=== PATIENT | female | born 1975 | race Two or more races ===

== ENCOUNTER 2019-05-07 01:27 | Emergency (ER) | payer MEDICAID ==
[~2019-05-07] VITALS: Ht 157.5 cm; Wt 68.0 kg
--- NOTE | 2019-05-07 01:40 | NUR ---
ED Nurse Note: Pt walked in c/o head ache, chest pain since one week. Pt stated she is unable to carry out ADL's d/t s/s. Pt stated she never had anxiety but feels anxious. [id number]
[2019-05-07 02:00] VITALS: BP 124/81
--- NOTE | 2019-05-07 02:00 | NUR ---
ED Nurse Note: IV ACCESS ESTABLISHED. BLOOD AND URINE COLLECTED; SENT DOWN TO LAB.
[2019-05-07 02:25] LABS: APPEARANCE,URINE CLEAR; BASOPHILS % (AUTO) 1.4 % (0.0-2.0); BILIRUBIN, URINE NEGATIVE (NEGATIVE); COLOR,URINE PALE YELLOW; EOSINOPHILS % (AUTO) 0.8 % (0.0-3.0); GLUCOSE, URINE (UA) NEGATIVE (NEGATIVE); HEMATOCRIT 35.7 % (37.0-47.0); HEMOGLOBIN 11.8 G/DL (12.0-16.0); KETONES,URINE NEGATIVE (NEGATIVE); LEUKOCYTE ESTERASE ,URINE NEGATIVE (NEGATIVE); LYMPHOCYTES % (AUTO) 27.4 % (20.0-45.0); MEAN CORPUSCULAR VOLUME 83 FL (80-99); MONOCYTES % (AUTO) 7.7 % (1.0-10.0); NEUTROPHILS % (AUTO) 62.7 % (45.0-75.0); NITRITE,URINE NEGATIVE (NEGATIVE); PH,URINE 6.5 (4.5-8.0); PLATELET COUNT 260 K/UL (150-450); PROTEIN,URINE NEGATIVE (NEGATIVE); RED BLOOD COUNT 4.27 M/UL (4.20-5.40); RED CELL DISTRIBUTION WIDTH 14.8 % (11.6-14.8); UROBILINOGEN,URINE NORMAL MG/DL (0.0-1.0); WHITE BLOOD COUNT 6.1 K/UL (4.8-10.8)
[2019-05-07 02:36] LABS: ANION GAP 11 mmol/L (5-15); BLOOD UREA NITROGEN 9 mg/dL (7-18); CALCIUM 8.6 MG/DL (8.5-10.1); CARBON DIOXIDE 25 MMOL/L (21-32); CHLORIDE 108 MMOL/L (98-107); CREATININE 0.8 MG/DL (0.55-1.30); POTASSIUM 3.6 MMOL/L (3.5-5.1); SODIUM 144 MMOL/L (136-145)
[2019-05-07 02:51] LABS: ALANINE AMINOTRANSFERASE 25 U/L (12-78); ALBUMIN 4.2 G/DL (3.4-5.0); ALBUMIN/GLOBULIN RATIO 1.1 (1.0-2.7); ALKALINE PHOSPHATASE 71 U/L (46-116); ASPARTATE AMINO TRANSFERASE 15 U/L (15-37); BILIRUBIN,TOTAL 0.2 MG/DL (0.2-1.0)
[2019-05-07 03:00] VITALS: BP 132/79
[2019-05-07] MEDS ORDERED: Metoclopramide 10mg/2ml Inj IVP ONE (04:00)
[2019-05-07 04:30] VITALS: BP 122/79
--- NOTE | 2019-05-07 04:48 | Emergency Room Report ---
History of Present Illness General Chief Complaint: General Complaint Source: Patient Present Illness HPI 43-year-old female presents with vague complaints of ongoing palpitations that come and go, this is been ongoing for about a year, when she goes to work she feels anxiety and palpitations, she states she has a headache that then travels down her body and then she feels her heart race, back pain, chest tightness that comes and goes, work appears to be an aggravating factor however she states that she enjoys her work, no alleviating factors severity is moderate, intermittent, she denies any current chest pain currently no nausea no vomiting no abdominal pain, patient has seen her primary care doctor who stated that she most likely suffers from some form of anxiety however they have not started any treatment, patient presents for these ongoing symptoms and for treatment Allergies: Coded Allergies: No Known Allergies (Unverified , 05/07/19) Patient History Past Medical History: see triage record Last Menstrual Period: na Reviewed Nursing Documentation: PMH: Agreed; PSxH: Agreed Nursing Documentation-PMH Past Medical History: No Stated History Review of Systems All Other Systems: negative except mentioned in HPI Physical Exam Vital Signs Date Time Temp Pulse Resp B/P (MAP) Pulse Ox O2 Delivery O2 Flow Rate FiO2 05/07/19 01:36 98.1 82 16 124/81 (95) 100 Room Air Sp02 EP Interpretation: reviewed, normal General Appearance: well appearing, no apparent distress, alert Head: normocephalic, atraumatic Eyes: bilateral eye PERRL, bilateral eye EOMI ENT: uvula midline, moist mucus membranes Neck: supple, thyroid normal, supple/symm/no masses Respiratory: lungs clear, no respiratory distress, no retraction, no accessory muscle use Cardiovascular #1: normal peripheral pulses, regular rate, rhythm, no edema, no gallop, no murmur Gastrointestinal: non tender, soft, no guarding, no rebound Musculoskeletal: normal inspection Neurologic: alert, oriented x3 Psychiatric: anxious Skin: no rash, warm/dry Medical Decision Making Diagnostic Impression: Primary Impression: TSH elevation Additional Impression: Palpitations ER Course 43-year-old female presents with constellation of symptoms that are atypical differential diagnosis includes elevated thyroid hormone, ACS, palpitations Chest x-ray negative, EKG negative troponin negative, patient found to have a incidental elevated TSH with normal T4 T3 Patient may be having an uptake in thyroid hormone which is inducing her palpitations however her T4 and T3 are normal, counseled patient to follow-up with endocrinology A copy of her labs were handed to her Will disposition patient home with return precautions follow-up with PCP Laboratory Tests Test 05/07/19 02:00 White Blood Count 6.1 K/UL (4.8-10.8) Red Blood Count 4.27 M/UL (4.20-5.40) Hemoglobin 11.8 G/DL (12.0-16.0) L Hematocrit 35.7 % (37.0-47.0) L Mean Corpuscular Volume 83 FL (80-99) Mean Corpuscular Hemoglobin 27.5 PG (27.0-31.0) Mean Corpuscular Hemoglobin Concent 33.0 G/DL (32.0-36.0) Red Cell Distribution Width 14.8 % (11.6-14.8) Platelet Count 260 K/UL (150-450) Mean Platelet Volume 7.5 FL (6.5-10.1) Neutrophils (%) (Auto) 62.7 % (45.0-75.0) Lymphocytes (%) (Auto) 27.4 % (20.0-45.0) Monocytes (%) (Auto) 7.7 % (1.0-10.0) Eosinophils (%) (Auto) 0.8 % (0.0-3.0) Basophils (%) (Auto) 1.4 % (0.0-2.0) Urine Color Pale yellow Urine Appearance Clear Urine pH 6.5 (4.5-8.0) Urine Specific [place] 1.010 (1.005-1.035) Urine Protein Negative (NEGATIVE) Urine Glucose (UA) Negative (NEGATIVE) Urine Ketones Negative (NEGATIVE) Urine Blood 2+ (NEGATIVE) H Urine Nitrite Negative (NEGATIVE) Urine Bilirubin Negative (NEGATIVE) Urine Urobilinogen Normal MG/DL (0.0-1.0) Urine Leukocyte Esterase Negative (NEGATIVE) Urine RBC 0-2 /HPF (0 - 2) Urine WBC 0-2 /HPF (0 - 2) Urine Squamous Epithelial Cells Occasional /LPF Urine Bacteria Occasional /HPF (NONE) Urine HCG, Qualitative Negative (NEGATIVE) Sodium Level 144 MMOL/L (136-145) Potassium Level 3.6 MMOL/L (3.5-5.1) Chloride Level 108 MMOL/L (98-107) H Carbon Dioxide Level 25 MMOL/L (21-32) Anion Gap 11 mmol/L (5-15) Blood Urea Nitrogen 9 mg/dL (7-18) Creatinine 0.8 MG/DL (0.55-1.30) Estimate Glomerular Filtration Rate > 60 mL/min (>60) Glucose Level 106 MG/DL (74-106) Calcium Level 8.6 MG/DL (8.5-10.1) Total Bilirubin 0.2 MG/DL (0.2-1.0) Aspartate Amino Transferase (AST) 15 U/L (15-37) Alanine Aminotransferase (ALT) 25 U/L (12-78) Alkaline Phosphatase 71 U/L (46-116) Troponin I 0.000 ng/mL (0.000-0.056) Total Protein 7.9 G/DL (6.4-8.2) Albumin 4.2 G/DL (3.4-5.0) Globulin 3.7 g/dL Albumin/Globulin Ratio 1.1 (1.0-2.7) Lipase 148 U/L (73-393) Thyroid Stimulating Hormone (TSH) 8.361 uiU/mL (0.358-3.740) Free Thyroxine 1.27 NG/DL (0.76-1.46) Free Triiodothyronine 3.6 pg/mL (2.3-4.2) Urine Opiates Screen Negative (NEGATIVE) Urine Barbiturates Screen Negative (NEGATIVE) Phencyclidine (PCP) Screen Negative (NEGATIVE) Urine Amphetamines Screen Negative (NEGATIVE) Urine Benzodiazepines Screen Negative (NEGATIVE) Urine Cocaine Screen Negative (NEGATIVE) Urine Marijuana (THC) Screen Negative (NEGATIVE) EKG Diagnostic Results EKG Time: 02:09 EP Interpretation: NSR, rate 71, QTc 447, no acute ST elevations, normal axis Rhythm Strip Diag. Results Rhythm Strip Time: 02:15 EP Interpretation: yes Rate: 72 Rhythm: NSR, no PVC's, no ectopy Chest X-Ray Diagnostic Results Chest X-Ray Diagnostic Results : Chest X-Ray Ordered: Yes # of Views/Limited/Complete: 1 View Indication: Chest Pain EP Interpretation: Yes Interpretation: no consolidation, no effusion, no pneumothorax, no acute cardiopulmonary disease Impression: No acute disease Electronically Signed by: Guevara Schofield MD Last Vital Signs Date Time Temp Pulse Resp B/P (MAP) Pulse Ox O2 Delivery O2 Flow Rate FiO2 05/07/19 02:00 82 16 Room Air 05/07/19 02:00 98.1 124/81 100 Disposition: HOME, SELF-CARE Condition: Stable Referrals: [facility] Astrid Castroaleta [facility] Patient Instructions: Palpitations, [id number], Thyroid-Stimulating Hormone Test Additional Instructions: The patient was provided with discharge instructions, notified to follow-up with a primary care doctor and or specialist in the next 24-48 hours, and to return to the ED if they have worsening of their symptoms. Please note that this report is being documented using [employer] technology. This can lead to erroneous entry secondary to incorrect interpretation by the dictating instrument. FOLLOW-UP WITH CARDIOLOGY, ENDOCRINOLOGY, AND PCP Guevara Schofield MD May 07, 2019 04:48
[2019-05-07 05:00] VITALS: BP 132/79
--- NOTE | 2019-05-07 05:00 | NUR ---
ER DISCHARGE NOTE: Patient is cleared to be discharged per ERMD, pt is aox4, on room air, with stable vital signs. accompanied by family member. pt was given dc and prescription instructions, pt was able to verbalize understanding, pt id band and iv site removed without complications. pt is able to ambulate with steady gait. pt took all belongings.
--- NOTE | 2019-05-07 05:01 | Diagnostic Imaging Report ---
EXAM: XR Chest, 1 View CLINICAL HISTORY: CP TECHNIQUE: Frontal view of the chest. COMPARISON: No relevant prior studies available. FINDINGS: Lungs: Unremarkable. No consolidation. Pleural space: Unremarkable. No pneumothorax. Heart: Unremarkable. No cardiomegaly. Mediastinum: Unremarkable. Bones/joints: Unremarkable. IMPRESSION: Normal chest x-ray.
[2019-05-07] MEDS ORDERED: RIBOFLAVIN100 MG PO (05:03)
[2019-05-08] MEDS ORDERED: FIORICET1 EA ORAL (20:36)
== END 2019-05-07 05:00 | disposition home or self-care (01) ==
LOC: EMR 02:00
DX: R94.6 Abnormal results of thyroid function studies (principal); R00.2 Palpitations
CPT/HCPCS: 36415; 71045; 80053; 80307; 81003; 81025; 83690; 84439; 84443; 84481; 84484; 85025; 93005; 96361; 96374; J2765; J7030; Z7502; 99284

== ENCOUNTER 2019-05-08 14:36 | Emergency (ER) | payer MEDICAID ==
[~2019-05-08] VITALS: Ht 157.5 cm; Wt 68.0 kg
[~2019-05-08 14:36] MED LIST: RIBOFLAVIN100 MG PO
--- NOTE | 2019-05-08 16:13 | Diagnostic Imaging Report ---
Indication: Headache Technique: Contiguous 5 mm thick transaxial imaging of the head obtained in a Siemens Sensation [address] scanner. Soft tissue and bone windows generated. Automatic Exposure Control was utilized. Total Dose length Product (DLP): [address] Dose Index Volume (CTDIvol): 62.7 mGy Comparison: none Findings: The size and configuration of the cortical sulci, basal cisterns, and ventricles are within normal limits for age. There is no mass effect, midline shift, or edema identified. There is no evidence of acute hemorrhage or abnormal intra-axial or extra-axial fluid collections. The bones and soft tissues are unremarkable. Impression: No mass effect, edema or acute bleed. The CT scanner at [facility] is accredited by the [employer] and the scans are performed using dose optimization techniques as appropriate to a performed exam including Automatic Exposure control.
--- NOTE | 2019-05-08 17:01 | NUR ---
ED Nurse Note: pt to rm with c/o migraine headache. pt with urine sent to lab and ct scan pending those results. pt denies n/v but relates the headache x 5 days and is light sensitive. lights dimmed in room
--- NOTE | 2019-05-08 17:10 | Emergency Room Report ---
History of Present Illness General Chief Complaint: Headache Source: Patient Present Illness HPI 43-year-old female presents to the emergency department complaining of 9 out of 10 severity persistent headache since yesterday. Patient reports that she was seen in the emergency department yesterday for similar symptoms and states that she continues to have a headache. Patient states that she had elevated TSH levels yesterday. Patient reports she has been having intermittent headaches times several months. Patient states that her headaches are circumferential around her head similar to wearing a tight hat. She describes throbbing in nature and describes a pressure sensation. Patient reports some increased sensitivity to lights and states that she also notices when she gets "worked up or in an argument her headache is triggered. Patient denies history of migraines. She reports her mother has a history of migraines though. Patient states she took Tylenol with no relief. She reports having been told she had high blood pressure in the past but was never placed on medication and states that she has been having normal blood pressures lately. She denies neck pain or stiffness, nausea, vomiting, tinnitus, visual changes or loss of vision. Patient reports being in a dark quiet room will help to minimize her symptoms. Patient denies urinary frequency, urgency, hematuria or dysuria. She denies suspicion of . She denies recent head trauma or fall. She denies eye pain. She denies paresthesias, muscle weakness, inability to move the extremities, facial paralysis or slurred speech. She denies sudden onset of her headache and states that her symptoms have been progressively getting worse and more frequent. She denies CP, SOB, Dizziness or syncope. Allergies: Coded Allergies: No Known Allergies (Unverified , 05/07/19) Patient History Past Medical History: see triage record Past Surgical History: none Pertinent Family History: other - migraine- mother Last Menstrual Period: 05/04/2019 Now: No Reviewed Nursing Documentation: PMH: Agreed; PSxH: Agreed Nursing Documentation-PMH Past Medical History: No Stated History Review of Systems All Other Systems: negative except mentioned in HPI Physical Exam Vital Signs Date Time Temp Pulse Resp B/P (MAP) Pulse Ox O2 Delivery O2 Flow Rate FiO2 05/08/19 14:44 98.6 90 16 114/71 (85) 100 Room Air Sp02 EP Interpretation: reviewed, normal General Appearance: well appearing, no apparent distress, alert, GCS 15, non- toxic Head: normocephalic, atraumatic Eyes: bilateral eye normal inspection, bilateral eye PERRL, bilateral eye EOMI , bilateral eye other - no photophobia on exam with otoscope ENT: hearing grossly normal, normal voice Neck: full range of motion, no meningismus, no bony tend Respiratory: lungs clear, normal breath sounds, speaking full sentences Cardiovascular #1: regular rate, rhythm Genitourinary: normal inspection, no CVA tenderness Musculoskeletal: back normal, normal range of motion, gait/station normal, non- tender Neurologic: alert, motor strength/tone normal, nursing center tutor III-XII nml as tested, oriented, oriented x3, sensory intact, responsive, speech normal, grossly normal , no focal defects, other - No pronator drift, no facial droop, negative Romberg , negative ataxia, normal visual field testing - no decreased VF to confrontation. Patient has a normal speech she answers questions appropriately and provide sufficient amount of detail. No obvious increase in response time or difficulty with word recall. Equal hatchery attendant strength bilaterally. Psychiatric: judgement/insight normal Medical Decision Making PA Attestation Dr. Lowry Is my supervising Physician whom patient management has been discussed with. Diagnostic Impression: Primary Impression: Headache Qualified Codes: G44.219 - Episodic tension-type headache, not intractable ER Course 43-year-old female presents to the emergency department complaining of 9 out of 10 severity persistent headache since yesterday. Patient reports that she was seen in the emergency department yesterday for similar symptoms and states that she continues to have a headache. Patient states that she had elevated TSH levels yesterday. Patient reports she has been having intermittent headaches times several months. Patient states that her headaches are circumferential around her head similar to wearing a tight hat. She describes throbbing in nature and describes a pressure sensation. Patient reports some increased sensitivity to lights and states that she also notices when she gets "worked up or in an argument her headache is triggered. Patient denies history of migraines. She reports her mother has a history of migraines though. Patient states she took Tylenol with no relief. She reports having been told she had high blood pressure in the past but was never placed on medication and states that she has been having normal blood pressures lately. She denies neck pain or stiffness, nausea, vomiting, tinnitus, visual changes or loss of vision. Patient reports being in a dark quiet room will help to minimize her symptoms. Patient denies urinary frequency, urgency, hematuria or dysuria. She denies suspicion of . She denies recent head trauma or fall. She denies eye pain. She denies paresthesias, muscle weakness, inability to move the extremities, facial paralysis or slurred speech. She denies sudden onset of her headache and states that her symptoms have been progressively getting worse and more frequent. She denies CP, SOB, Dizziness or syncope. Ddx considered but are not limited to migraine, SAH, Pseudomotor Cerebri, Mass lesion, Cluster VALDOVINOS, Tension VALDOVINOS, Post lumbar puncture VALDOVINOS. Pituitary lesion just to name a few. Vital signs: are WNL, pt. is afebrile H&PE are most consistent with tension type headache, no focal neurological deficits, no visual field changes. ORDERS: - Urine Hcg: Negative - UA:WNL -CT Head No Contrast: unremarkable ED INTERVENTIONS: Reglan IM -IM Toradol -Benadryl PO Patient has mild decrease of her pain however no full resolution of her headache. -I do not identify an emergent condition at this time. With current presentation , pt. is stable for close outpatient follow up and conservative treatment. D/ w pt. to return promptly to ED with worsening or new symptoms.- Pt. verbalizes' understanding and agreement with proposed treatment plan.proposed treatment plan. DISCHARGE: At this time pt. is stable for d/c to home. Will provide printed patient care instructions, and any necessary prescriptions. Care plan and follow up instructions have been discussed with the patient prior to discharge. Labs Test 05/08/19 16:52 Urine Color Pale yellow Urine Appearance Clear Urine pH 5 (4.5-8.0) Urine Specific [place] 1.020 (1.005-1.035) Urine Protein Negative (NEGATIVE) Urine Glucose (UA) Negative (NEGATIVE) Urine Ketones Negative (NEGATIVE) Urine Blood 3+ (NEGATIVE) Urine Nitrite Negative (NEGATIVE) Urine Bilirubin Negative (NEGATIVE) Urine Urobilinogen Normal MG/DL (0.0-1.0) Urine Leukocyte Esterase Negative (NEGATIVE) Urine RBC 2-4 /HPF (0 - 2) Urine WBC 0-2 /HPF (0 - 2) Urine Squamous Epithelial Cells Moderate /LPF (NONE/OCC) Urine Bacteria Few /HPF (NONE) Urine HCG, Qualitative Negative (NEGATIVE) CT/MRI/US Diagnostic Results CT/MRI/US Diagnostic Results : Imaging Test Ordered: CT head No Contrast Impression " No evidence of acute fracture, hemorrhage, or intracranial process". Per official radiology report- Please see report for specific details. Last Vital Signs Date Time Temp Pulse Resp B/P (MAP) Pulse Ox O2 Delivery O2 Flow Rate FiO2 05/08/19 14:44 98.6 90 16 114/71 (85) 100 Room Air Disposition: HOME, SELF-CARE Condition: Stable Scripts Acetamin/Butalbital/Caffeine* (FIORICET*) 1 Ea Tab 1 TAB ORAL Q6H, #15 TAB 0 Refills Prov: Swetha Mason 05/08/19 Departure Forms: Return to Work Return to Work Date: May 12, 2019 Work Restrictions: None Return to Full Activity: May 12, 2019 Patient Instructions: Tension Headache Additional Instructions: Take medications as directed. Follow up with a Primary Care Provider in 3-5 days For a referral to have NEUROLOGIST Evaluation, even if your symptoms have resolved. - Return sooner to ED if new symptoms occur, or current symptoms become worse. - Please note that this Emergency Department Report was dictated using [employer] portfolio manager technology software, occasionally this can lead to erroneous entry secondary to interpretation by the dictation equipment. Swetha Mason May 08, 2019 17:10
[2019-05-08 17:27] LABS: APPEARANCE,URINE CLEAR; BILIRUBIN, URINE NEGATIVE (NEGATIVE); COLOR,URINE PALE YELLOW; GLUCOSE, URINE (UA) NEGATIVE (NEGATIVE); KETONES,URINE NEGATIVE (NEGATIVE); LEUKOCYTE ESTERASE ,URINE NEGATIVE (NEGATIVE); NITRITE,URINE NEGATIVE (NEGATIVE); PH,URINE 5 (4.5-8.0); PROTEIN,URINE NEGATIVE (NEGATIVE); UROBILINOGEN,URINE NORMAL MG/DL (0.0-1.0)
[2019-05-08] MEDS ORDERED: Metoclopramide 10mg/2ml Inj IM ONE (17:45)
[2019-05-08] MEDS ORDERED: Ketorolac 30mg Inj IM ONE (17:45)
--- NOTE | 2019-05-08 18:03 | NUR ---
ED Nurse Note: pt medicated for headache
--- NOTE | 2019-05-08 18:49 | NUR ---
ED Nurse Note: pt relates some relief of headache but does feel head pressure still. no n/v
[2019-05-08 20:35] VITALS: BP 125/79
[2019-05-08] MEDS ORDERED: FIORICET1 EA ORAL (20:36)
[2019-05-08 20:50] VITALS: BP 125/79
--- NOTE | 2019-05-08 20:50 | NUR ---
ER DISCHARGE NOTE: Patient is cleared to be discharged per ERMD, pt is aox4, on room air, with stable vital signs. pt was given dc and prescription instructions, pt was able to verbalize understanding, pt id band and iv site removed without complications. pt is able to ambulate with steady gait. pt took all belongings.
== END 2019-05-08 20:50 | disposition home or self-care (01) ==
LOC: EMR 15:35
DX: G44.219 Episodic tension-type headache, not intractable (principal)
CPT/HCPCS: 70450; 81003; 81025; 96372; J1885; J2765; Z7502; 99284